=== PATIENT | female | born 1960 | race African-American/Black ===

== ENCOUNTER 2016-12-07 10:13 | Emergency (ER) | payer OTHER ==
[~2016-12-07] VITALS: Ht 160 cm; Wt 112.7 kg
[2016-12-07 10:18] VITALS: BP 135/68
--- NOTE | 2016-12-07 14:44 | NUR ---
PT TAKEN TO BED 8.
--- NOTE | 2016-12-07 15:09 | NUR ---
Patient being evaluated by Dr. Khan at bedside.
--- NOTE | 2016-12-07 15:10 | NUR ---
56/F presents to ED for evaluation of right lower back pain x2 days, started on Saturday. 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 I don't know if that has anything to do with it." Pt states she went to urgent care on Saturday and was given ibuprofen and has had no relief. Patient c/o 10/10 pain. Patient denies injury or trauma. Patient is AOX4, pt w/c assisted to bed, unable to assess gait. Pt states "It hurts worse when I walk." VSS.
[2016-12-07] MEDS ORDERED: DIAZEPAM PFS 10 MG/2 ML SYR IM ONE (15:15)
[2016-12-07] MEDS ORDERED: KETOROLAC 60 MG/2 ML VIAL IM ONE (15:15)
[2016-12-07 15:55] VITALS: BP 148/87
--- NOTE | 2016-12-07 15:55 | NUR ---
Chart checked and completed. The patient's care was reviewed and supervised by Carmina Deal RN.
--- NOTE | 2016-12-07 15:55 | NUR ---
ASSISTED TO CAR VIA WHEELCHAIR
--- NOTE | 2016-12-07 15:55 | NUR ---
Patient discharged with v/s stable. Written and verbal after care instructions given and explained. Patient alert, oriented and verbalized understanding of instructions. Wheel Chair Assisted with to home. All questions addressed prior to discharge. ID band removed. Patient advised to follow up with PMD. Rx of VALIUM,MOTRIN,NORCO given. Patient educated on indication of medication including possible reaction and side effects. Opportunity to ask questions provided and answered.
== END 2016-12-07 15:55 | disposition home or self-care (01) ==
LOC: MED 10:13
DX: M54.5 Low back pain (principal); Z90.49 Acquired absence of other specified parts of digestive tract
CPT/HCPCS: 81002; 81025; 96372; 99284; J1885; J3360